=== PATIENT | male | born 1970 | race Caucasian/White ===

== ENCOUNTER 2018-06-21 19:13 | Emergency (ER) | payer OTHER ==
[~2018-06-21] VITALS: Ht 182.9 cm; Wt 81.6 kg
[2018-06-21 19:41] LABS: BASOPHILS % (AUTO) 1.4 % (0.0-2.0); EOSINOPHILS % (AUTO) 2.6 % (0.0-3.0); HEMATOCRIT 42.4 % (42.0-52.0); HEMOGLOBIN 14.6 G/DL (14.2-18.0); LYMPHOCYTES % (AUTO) 33.6 % (20.0-45.0); MEAN CORPUSCULAR VOLUME 88 FL (80-99); MONOCYTES % (AUTO) 8.9 % (1.0-10.0); NEUTROPHILS % (AUTO) 53.6 % (45.0-75.0); PLATELET COUNT 200 K/UL (150-450); RED CELL DISTRIBUTION WIDTH 11.3 % (11.6-14.8); WHITE BLOOD COUNT 9.8 K/UL (4.8-10.8)
[2018-06-21] MEDS ORDERED: Metoclopramide 10mg/2ml Inj ONE (19:44)
[2018-06-21] MEDS ORDERED: Morphine Sulfate 2mg/ml Inj ONE (19:44)
[2018-06-21] MEDS ORDERED: Metoclopramide 10mg/2ml Inj IVP ONE (19:45)
[2018-06-21] MEDS ORDERED: Morphine Sulfate 2mg/ml Inj IVP ONE (19:45)
[2018-06-21 19:48] VITALS: BP 69/41
[2018-06-21 19:51] VITALS: BP 69/41
[2018-06-21 19:51] LABS: ANION GAP 11 mmol/L (5-15); BLOOD UREA NITROGEN 12 mg/dL (7-18); CALCIUM 8.4 MG/DL (8.5-10.1); CARBON DIOXIDE 23 MMOL/L (21-32); CHLORIDE 104 MMOL/L (98-107); CREATININE 1.1 MG/DL (0.55-1.30); POTASSIUM 3.3 MMOL/L (3.5-5.1); SODIUM 138 MMOL/L (136-145)
[2018-06-21 19:53] LABS: INR 1.3 (0.9-1.1)
[2018-06-21 20:07] LABS: ALANINE AMINOTRANSFERASE 55 U/L (12-78); ALBUMIN 3.5 G/DL (3.4-5.0); ALKALINE PHOSPHATASE 78 U/L (46-116); ASPARTATE AMINO TRANSFERASE 25 U/L (15-37); BILIRUBIN,TOTAL 0.4 MG/DL (0.2-1.0); CKMB 1.5 NG/ML (0.0-3.6); CREATINE KINASE 122 U/L (26-308)
--- NOTE | 2018-06-21 23:56 | Emergency Room Report ---
History of Present Illness General Chief Complaint: Dizziness Source: Patient Present Illness HPI 47-year-old male presents ED for evaluation. Brought in by EMS from restaurant. Per EMS patient states that he felt chest tightness and dizziness while eating a crab cake. No known food or drug allergies. Upon arrival patient is hypotensive. Patient complaining of chest tightness and headache. Pain is sharp, 7 out of 10, nonradiating. Denies alcohol or drug use. Denies fevers or chills. No other aggravating relieving factors. No other associated symptoms Allergies: Coded Allergies: No Known Allergies (Unverified , 06/21/18) Patient History Past Medical History: other - graves Past Surgical History: none Pertinent Family History: none Social History: Denies: smoking, alcohol use, drug use Immunizations: UTD Reviewed Nursing Documentation: PMH: Agreed; PSxH: Agreed Review of Systems All Other Systems: negative except mentioned in HPI Physical Exam Vital Signs Date Time Temp Pulse Resp B/P (MAP) Pulse Ox O2 Delivery O2 Flow Rate FiO2 06/21/18 19:15 97.9 72 18 69/41 96 Room Air 97.9 Sp02 EP Interpretation: reviewed, normal General Appearance: alert, GCS 15, severe distress, other - diaphoretic Head: normocephalic Eyes: bilateral eye normal inspection, bilateral eye PERRL ENT: normal ENT inspection Neck: normal inspection Respiratory: chest non-tender, lungs clear, normal breath sounds, speaking full sentences Cardiovascular #1: regular rate, rhythm, no edema Gastrointestinal: normal bowel sounds, non tender, soft, non-distended, no guarding, no rebound Rectal: deferred Genitourinary: no CVA tenderness Musculoskeletal: normal inspection Neurologic: alert, oriented x3, responsive, motor strength/tone normal, sensory intact, speech normal Psychiatric: judgement/insight normal, memory normal, mood/affect normal, no suicidal/homicidal ideation Skin: normal inspection Lymphatic: normal inspection Procedures Critical Care Time Critical Care Time i. I feel this is a highly complex case requiring extensive working including EKG/Rhythm strip, Xray/CT/US, Blood/urine lab work, repeat exams while in ED, and administration of strong opiates/narcotics for pain control, admission to hospital or close patient follow up. Total time: 30 min bedside evaluation and treatment excludes procedures (EKG). Reason for critical care: STEMI, hypotensive, diaphroetic Possible complications: hypotension, hypertension, [place], shock, arrhythmias, metabolic acidosis, end organ damage, respiratory failure. Interventions: labs, IVFs, consutlation with cardiology. discussion with STEMI team at [facility] Course: Patient presenting with hypotension and diaphoresis and chest tightness today. No significant cardiac history. EKG shows significant ST depressions in the lateral leads and anterior leads. Concerning for ST elevation in aVR. Concern for STEMI. Patient remains hypotensive despite IV fluids. Case discussed with team at [facility] and he accepted patient for transfer. Consultations: nursing staff, EMS, family Performed by: Dr Butcher Tolerated well condition = critical j. because of unstable vital signs this patient had a condition that could potentially threaten life or limb. I feel this is a critical patient who required my full attention while patient was considered critical. Total Critical Care Time excluding procedures was greater than 35 minutes Medical Decision Making Diagnostic Impression: Primary Impression: Dizziness Additional Impression: STEMI ER Course Hospital Course 47 yo M presents with diaphroesis, chest tightness, hypotension Differential diagnoses include: [place]/unstable angina, contusion, muscle strain, PTX, rib fracture Clinical course Patient placed on stretcher. After initial history and physical I ordered labs , IV fluids, UA, EKG and chest x-ra EKG- ST depressions in V4 through V6, [address] elevation in aVR. Discussed case with [facility]. Concern for STEMI. Accepted patient for transfer 911 called to take patient to [facility]. Patient remains hypotensive. ROHAND received instruction from from [facility] to give push dose epinephrine to increased blood pressure in route Patient will likely require immediate cath. Discussed findings with patient and family I. I feel this is a highly complex case requiring extensive working including EKG/Rhythm strip, Xray/CT/US, Blood/urine lab work, repeat exams while in ED, and administration of strong opiates/narcotics for pain control, admission to hospital or close patient follow up. Diagnosis - STEMI Transferred to [facility] in critical condition EKG Diagnostic Results Rate: normal Rhythm: NSR ST Segments: other - ST depressions in lateral leads, II, III, ST elevation in AVR ASA given to the pt in ED: No Rhythm Strip Diag. Results EP Interpretation: yes Rhythm: NSR, no PVC's, no ectopy Last Vital Signs Date Time Temp Pulse Resp B/P (MAP) Pulse Ox O2 Delivery O2 Flow Rate FiO2 10/22/18 19:51 97.9 06/21/18 19:51 18 69/41 96 Room Air 06/21/18 19:15 72 Status: improved Disposition: XFER [facility]-TRM HOSP Condition: Critical Referrals: NOT CHOSEN IPA/,REFERRING (PCP) Jerson Butcher MD Jun 21, 2018 23:56
== END 2018-06-21 19:51 | disposition short-term general hospital (02) ==
LOC: EDBD 19:13 → EMR 19:30
DX: I21.29 ST elevation (STEMI) myocardial infarction involving other sites (principal)
CPT/HCPCS: 36415; 80053; 82550; 82553; 83880; 84484; 85025; 85610; 85730; 96361; 96374; 96375; 99285; J2270; J2765